=== PATIENT | female | born 1960 | race Caucasian/White ===

== ENCOUNTER 2020-08-27 21:23 | Emergency (ER) | payer MEDICARE, OTHER ==
[~2020-08-27 21:23] MED LIST: ACYCLOVIR400 MG PO; AMBIEN10 MG PO; ANTIVERT25 MG PO; ASPIRIN325 MG PO; BACTRIM DS TAB1 EACH PO; CIPRO500 MG PO; CYCLOBENZAPRINE10 MG PO; DICLOFENAC SODI75 MG PO; DIFLUCAN150 MG PO; DILANTIN100 MG PO; IBUPROFEN800 MG PO; KLONOPIN0.5 MG PO; LODINE400 MG PO; MACROBID100 MG PO; NORCO 5-325 TA1 EACH PO; PHENOBARBITAL100 MG PO; PREDNISONE 20MG20 MG PO; PROZAC20 MG PO; TRAZODONE 150M150 MG PO; VENTOLIN HFA IN18 GM INH; VIBRAMYCIN100 MG PO
[2020-08-27] MEDS ORDERED: NAPROXEN500 MG PO (22:28)
== END 2020-08-27 22:37 | disposition home or self-care (01) ==
LOC: FER 21:23
DX: S40.012A Contusion of left shoulder, initial encounter (principal); S40.022A Contusion of left upper arm, initial encounter; S40.021A Contusion of right upper arm, initial encounter; R51.9 Headache, unspecified; R07.9 Chest pain, unspecified; Y04.2XXA Assault by strike against or bumped into by another person, initial encounter; Y92.830 Public park as the place of occurrence of the external cause
CPT/HCPCS: 71046; 73030

== ENCOUNTER 2020-09-06 16:08 | Emergency (ER) | payer MEDICARE, OTHER ==
[~2020-09-06 16:08] MED LIST changes: +NAPROXEN500 MG PO
[2020-09-06] MEDS ORDERED: RELAFEN750 MG PO (17:57)
== END 2020-09-06 18:13 | disposition home or self-care (01) ==
LOC: FER 16:08
DX: S20.212A Contusion of left front wall of thorax, initial encounter (principal); S40.021A Contusion of right upper arm, initial encounter; Z91.040 Latex allergy status; Y04.2XXA Assault by strike against or bumped into by another person, initial encounter; Y92.009 Unspecified place in unspecified non-institutional (private) residence as the place of occurrence of the external cause
CPT/HCPCS: 71101

== ENCOUNTER 2020-09-23 12:16 | Emergency (ER) | payer MEDICARE, OTHER ==
[~2020-09-23 12:16] MED LIST changes: +RELAFEN750 MG PO
[2020-09-23 15:33] LABS: BILIRUBIN NEGATIVE (NEGATIVE); BLOOD TRACE-INTACT Ery/uL (NEGATIVE); CLARITY CLEAR (CLEAR); COLOR YELLOW (YELLOW); GLUCOSE (U) NORMAL (NORMAL); LEUKOCYTES NEGATIVE Leu/uL (NEGATIVE); NITRITE NEGATIVE (NEGATIVE); PROTEIN NEGATIVE (NEGATIVE); SPECIFIC GRAVITY 1.015 (1.001-1.030); UROBILINOGEN 0.2 mg/dL (0.2-1.0); pH 7.5 (5.0-9.0)
[2020-09-23 15:38] LABS: URINARY RBC RARE
[2020-09-23 17:13] LABS: ALBUMIN 3.5 g/dL (3.4-5.0); BILIRUBIN - TOTAL 0.3 mg/dL (0.2-1.0); BUN/CREAT RATIO (CALC) 5.7 RATIO; CREATININE 0.7 mg/dL (0.51-0.95); GLOBULIN (CALCULATION) 3.5 g/dL; POTASSIUM 3.8 mmol/L (3.5-5.1)
[2020-09-23 17:26] LABS: LACTIC ACID 1.7 mmol/L (0.4-1.9)
[2020-09-23 17:36] LABS: BASOPHIL 0.2 % (0-2); EOSINOPHIL 0 % (0-5); HCT 34.3 % (37.0-47.0); HGB 11.8 g/dl (12.5-16.0); MCH 31.1 pg (25.0-31.0); MCHC 34.4 g/dL (32.0-36.0); MCV 90.3 fL (78.0-100.0); MONOCYTE 6.5 % (0-12); MPV 8.8 fL (6.0-9.5); NRBC 0; PLT 168 K/uL (150-400); RDW 12.6 % (11.5-14.0); WBC 9.1 K/uL (4.0-10.5)
[2020-09-23] MEDS ORDERED: VOLTAREN **OUT50 MG PO ×2 (18:14→19:23)
[2020-09-23] MEDS ORDERED: VIBRAMYCIN100 MG PO ×2 (18:14→19:23)
== END 2020-09-23 19:21 | disposition home or self-care (01) ==
LOC: FER 12:16
PROVIDERS: Emergency Medicine
DX: M54.5 Low back pain (principal); M54.2 Cervicalgia; M53.3 Sacrococcygeal disorders, not elsewhere classified; G89.29 Other chronic pain; J18.0 Bronchopneumonia, unspecified organism; R91.8 Other nonspecific abnormal finding of lung field; R20.0 Anesthesia of skin; J45.909 Unspecified asthma, uncomplicated; Z87.39 Personal history of other diseases of the musculoskeletal system and connective tissue; W19.XXXA Unspecified fall, initial encounter; Z20.822 Contact with and (suspected) exposure to COVID-19
CPT/HCPCS: 36415; 71045; 72128; 72131; 80053; 81001; 83605; 85025; 87040; 87076; 87088; 87186; J1885; U0002

== ENCOUNTER 2020-11-06 16:09 | Emergency (ER) | payer MEDICARE, OTHER ==
[~2020-11-06 16:09] MED LIST changes: +VOLTAREN **OUT50 MG PO
[2020-11-06] MEDS ORDERED: DICLOFENAC SODI75 MG PO (17:53)
== END 2020-11-06 18:10 | disposition home or self-care (01) ==
LOC: FER 16:09
DX: M48.02 Spinal stenosis, cervical region (principal); R51.9 Headache, unspecified; J44.9 Chronic obstructive pulmonary disease, unspecified
CPT/HCPCS: 96372; 99283; J1040; J1885; J3360

== ENCOUNTER 2020-12-16 17:08 | Emergency (ER) | payer MEDICARE, OTHER ==
[2020-12-16] MEDS ORDERED: NAPROXEN500 MG PO (19:31)
== END 2020-12-16 20:12 | disposition home or self-care (01) ==
LOC: FER 17:08
DX: S02.2XXA Fracture of nasal bones, initial encounter for closed fracture (principal); S16.1XXA Strain of muscle, fascia and tendon at neck level, initial encounter; M25.531 Pain in right wrist; M25.532 Pain in left wrist; I10 Essential (primary) hypertension; Z79.899 Other long term (current) drug therapy; Z86.69 Personal history of other diseases of the nervous system and sense organs; Z91.040 Latex allergy status; Z98.890 Other specified postprocedural states; W19.XXXA Unspecified fall, initial encounter; W22.8XXA Striking against or struck by other objects, initial encounter
CPT/HCPCS: 70450; 72125; 73100; 96372; J1170; J1885

== ENCOUNTER 2021-01-21 23:04 | Emergency (ER) | payer MEDICARE, OTHER ==
[2021-01-21 23:59] LABS: BILIRUBIN 2+ mg/dL (NEGATIVE); BLOOD TRACE-INTACT Ery/uL (NEGATIVE); CLARITY HAZY (CLEAR); COLOR ORANGE (YELLOW); GLUCOSE (U) 1+ mg/dL (NORMAL); LEUKOCYTES 2+ Leu/uL (NEGATIVE); NITRITE POSITIVE (NEGATIVE); PROTEIN 2+ mg/dL (NEGATIVE); UROBILINOGEN >=8.0 mg/dL (0.2-1.0); pH 5.5 (5.0-9.0)
[2021-01-22 00:07] LABS: URINARY RBC RARE; URINARY WBC 20-50
[2021-01-22 00:08] LABS: BACTERIA TRACE; SQUAMOUS EPITHELIAL CELLS RARE
[2021-01-22 00:09] LABS: BASOPHIL 0.5 % (0-2); EOSINOPHIL 0.5 % (0-5); HCT 38.2 % (37.0-47.0); HGB 13.1 g/dl (12.5-16.0); LYMPHOCYTE 26.6 % (15-48); MCHC 34.3 g/dL (32.0-36.0); MCV 93.4 fL (78.0-100.0); MONOCYTE 9.5 % (0-12); MPV 8.8 fL (6.0-9.5); NEUTROPHIL 62.7 % (41-80); NRBC 0; PLT 174 K/uL (150-400); RBC 4.09 M/uL (4.20-5.40); RDW 13.3 % (11.5-14.0); WBC 4.4 K/uL (4.0-10.5)
[2021-01-22 00:28] LABS: ALBUMIN 3.8 g/dL (3.4-5.0); BILIRUBIN - TOTAL 0.2 mg/dL (0.2-1.0); CREATININE 0.92 mg/dL (0.51-0.95); GLOBULIN (CALCULATION) 3.6 g/dL; POTASSIUM 3.6 mmol/L (3.5-5.1); TOTAL PROTEIN 7.4 g/dL (6.4-8.2)
[2021-01-22] MEDS ORDERED: CIPRO500 MG PO (03:14)
[2021-01-22] MEDS ORDERED: NORCO 5-325 TA1 EACH PO (03:14)
[2021-01-22] MEDS ORDERED: DIFLUCAN 100MG100 MG PO (03:31)
[2021-01-25 06:06] LABS: CHLAMYDIA TRACHOMATIS, NAA Negative (Negative); NEISSERIA GONORRHOEAE, NAA Negative (Negative)
== END 2021-01-22 03:30 | disposition home or self-care (01) ==
LOC: FER 23:04
PROVIDERS: Emergency Medicine Emergency Medical Services
DX: N30.00 Acute cystitis without hematuria (principal); N93.9 Abnormal uterine and vaginal bleeding, unspecified; Z91.040 Latex allergy status; Z90.711 Acquired absence of uterus with remaining cervical stump
CPT/HCPCS: 36415; 80053; 81001; 85025; 87210; 87491; 87591; J1885; J2270; J2405

== ENCOUNTER 2021-02-23 18:08 | Emergency (ER) | payer MEDICARE, OTHER ==
[~2021-02-23 18:08] MED LIST changes: +DIFLUCAN 100MG100 MG PO
[2021-02-23 19:36] LABS: BASOPHIL 0.5 % (0-2); EOSINOPHIL 0.3 % (0-5); HCT 35.1 % (37.0-47.0); HGB 11.9 g/dl (12.5-16.0); LYMPHOCYTE 26.3 % (15-48); MCH 32.3 pg (25.0-31.0); MCHC 33.9 g/dL (32.0-36.0); MCV 95.4 fL (78.0-100.0); MONOCYTE 8.5 % (0-12); NEUTROPHIL 64.1 % (41-80); NRBC 0; PLT 164 K/uL (150-400); RBC 3.68 M/uL (4.20-5.40); RDW 12.8 % (11.5-14.0); WBC 3.9 K/uL (4.0-10.5)
[2021-02-23 19:49] LABS: ALBUMIN 3.8 g/dL (3.4-5.0); BILIRUBIN - TOTAL 0.4 mg/dL (0.2-1.0); BUN/CREAT RATIO (CALC) 23.5 RATIO; CREATININE 0.68 mg/dL (0.51-0.95); GLOBULIN (CALCULATION) 3.6 g/dL; POTASSIUM 3.6 mmol/L (3.5-5.1); TOTAL PROTEIN 7.4 g/dL (6.4-8.2)
[2021-02-23] MEDS ORDERED: ONDANSETRON ODT4 MG PO (20:42)
== END 2021-02-23 20:50 | disposition home or self-care (01) ==
LOC: FER 18:08
PROVIDERS: Emergency Medicine
DX: B34.9 Viral infection, unspecified (principal); R11.2 Nausea with vomiting, unspecified; R19.7 Diarrhea, unspecified; G40.909 Epilepsy, unspecified, not intractable, without status epilepticus; Z91.040 Latex allergy status; Z79.899 Other long term (current) drug therapy
CPT/HCPCS: 36415; 80053; 83690; 84484; 85025; 93005; J0780; J1885; J2270; J2405; J7030

== ENCOUNTER 2021-03-01 23:51 | Emergency (ER) | payer MEDICARE, OTHER ==
[~2021-03-01 23:51] MED LIST changes: +ONDANSETRON ODT4 MG PO
[2021-03-02 01:04] LABS: BASOPHIL 0.2 % (0-2); EOSINOPHIL 0.5 % (0-5); HCT 33.7 % (37.0-47.0); HGB 11.9 g/dl (12.5-16.0); LYMPHOCYTE 37.6 % (15-48); MCH 32.9 pg (25.0-31.0); MCHC 35.3 g/dL (32.0-36.0); MCV 93.1 fL (78.0-100.0); MONOCYTE 9.3 % (0-12); MPV 9.2 fL (6.0-9.5); NEUTROPHIL 52.4 % (41-80); NRBC 0; PLT 186 K/uL (150-400); RBC 3.62 M/uL (4.20-5.40); RDW 12.9 % (11.5-14.0); WBC 4.1 K/uL (4.0-10.5)
[2021-03-02 01:24] LABS: ALBUMIN 3.8 g/dL (3.4-5.0); BILIRUBIN - TOTAL 0.3 mg/dL (0.2-1.0); BUN/CREAT RATIO (CALC) 12.5 RATIO; CREATININE 0.8 mg/dL (0.51-0.95); GLOBULIN (CALCULATION) 3.3 g/dL; TOTAL PROTEIN 7.1 g/dL (6.4-8.2)
[2021-03-02 01:29] LABS: LACTIC ACID 0.4 mmol/L (0.4-1.9)
[2021-03-02 02:38] LABS: BILIRUBIN NEGATIVE (NEGATIVE); BLOOD NEGATIVE Ery/uL (NEGATIVE); CLARITY CLEAR (CLEAR); COLOR YELLOW (YELLOW); GLUCOSE (U) NORMAL (NORMAL); LEUKOCYTES TRACE Leu/uL (NEGATIVE); NITRITE NEGATIVE (NEGATIVE); PROTEIN NEGATIVE (NEGATIVE); SPECIFIC GRAVITY <=1.005 (1.001-1.030); UROBILINOGEN 0.2 mg/dL (0.2-1.0)
[2021-03-02 02:45] LABS: SQUAMOUS EPITHELIAL CELLS RARE; URINARY WBC RARE
[2021-03-02 04:19] LABS: INR 1.11 (0.9-1.2); PROTHROMBIN TIME 13.6 SECONDS (11.4-13.6); PTT 30.9 SECONDS (22.2-34.7)
[2021-03-02 06:16] LABS: CORONAVIRUS 2019 SARS-COV-2 NEGATIVE (NEGATIVE); INFLUENZA A NAA NEGATIVE (NEGATIVE)
[2021-03-02 07:34] LABS: ECSTASY (MDMA) NEGATIVE (NEGATIVE); MARIJUANA (THC) NEGATIVE (NEGATIVE); METHADONE NEGATIVE (NEGATIVE); OPIATES NEGATIVE (NEGATIVE)
[2021-03-02 07:35] LABS: AMPHETAMINES NEGATIVE (NEGATIVE); BARBITURATES POSITIVE (NEGATIVE); OXYCODONE NEGATIVE (NEGATIVE)
[2021-03-03 16:09] LABS: LYME IGG/IGM AB <0.91 ISR (0.00-0.90)
[2021-03-04 22:10] LABS: HSV-1 DNA Negative (Negative); HSV-2 DNA Negative (Negative)
== END 2021-03-02 14:20 | disposition other institution (70) ==
LOC: FER 23:51
PROVIDERS: Emergency Medicine Emergency Medical Services
DX: R10.31 Right lower quadrant pain (principal); R10.32 Left lower quadrant pain; R19.7 Diarrhea, unspecified; R11.2 Nausea with vomiting, unspecified; R53.1 Weakness; R07.9 Chest pain, unspecified; M54.9 Dorsalgia, unspecified; G43.901 Migraine, unspecified, not intractable, with status migrainosus; I48.91 Unspecified atrial fibrillation; G40.909 Epilepsy, unspecified, not intractable, without status epilepticus; F41.9 Anxiety disorder, unspecified; F31.9 Bipolar disorder, unspecified; Z20.822 Contact with and (suspected) exposure to COVID-19; Z91.040 Latex allergy status; Z90.49 Acquired absence of other specified parts of digestive tract; Z90.710 Acquired absence of both cervix and uterus; Z79.899 Other long term (current) drug therapy
CPT/HCPCS: 36415; 70450; 70551; 71045; 80053; 80305; 81001; 83605; 83690; 84145; 84484; 85025; 85610; 85730; 86618; 86757; 87040; 87088; 87529; 93005; 96365; 96372; 96375; 96376; G0480; J0500; J0696; J1100; J1170; J1885; J2175; J2270; J2405; J3030; J3480; J7030; Q9967; U0002

== ENCOUNTER 2021-03-12 21:19 | Emergency (ER) | payer MEDICARE, OTHER ==
[2021-03-12 22:46] LABS: BASOPHIL 0.5 % (0-2); EOSINOPHIL 0.8 % (0-5); HGB 11.9 g/dl (12.5-16.0); LYMPHOCYTE 31.1 % (15-48); MCH 32.7 pg (25.0-31.0); MCV 96.2 fL (78.0-100.0); MONOCYTE 9.2 % (0-12); MPV 8.8 fL (6.0-9.5); NEUTROPHIL 58.1 % (41-80); NRBC 0; PLT 212 K/uL (150-400); RBC 3.64 M/uL (4.20-5.40); RDW 12.5 % (11.5-14.0); WBC 3.9 K/uL (4.0-10.5)
[2021-03-12 23:03] LABS: BILIRUBIN NEGATIVE (NEGATIVE); BLOOD NEGATIVE Ery/uL (NEGATIVE); CLARITY CLEAR (CLEAR); COLOR YELLOW (YELLOW); GLUCOSE (U) NORMAL (NORMAL); LEUKOCYTES NEGATIVE Leu/uL (NEGATIVE); NITRITE NEGATIVE (NEGATIVE); PROTEIN NEGATIVE (NEGATIVE)
[2021-03-12 23:24] LABS: ALBUMIN 3.8 g/dL (3.4-5.0); BILIRUBIN - TOTAL 0.2 mg/dL (0.2-1.0); BUN/CREAT RATIO (CALC) 18.3 RATIO; CREATININE 1.04 mg/dL (0.51-0.95); GLOBULIN (CALCULATION) 3.6 g/dL; POTASSIUM 3.9 mmol/L (3.5-5.1); TOTAL PROTEIN 7.4 g/dL (6.4-8.2)
[2021-03-13 02:52] LABS: HCT 31.5 % (37.0-47.0); HGB 10.5 g/dL (12.5-16.0)
== END 2021-03-13 03:44 | disposition home or self-care (01) ==
LOC: FER 21:19
PROVIDERS: Emergency Medicine Emergency Medical Services; Nurse Practitioner Family
DX: R51.9 Headache, unspecified (principal); K62.5 Hemorrhage of anus and rectum; G40.909 Epilepsy, unspecified, not intractable, without status epilepticus; J44.9 Chronic obstructive pulmonary disease, unspecified; Z91.040 Latex allergy status; Z79.899 Other long term (current) drug therapy
CPT/HCPCS: 36415; 70450; 80053; 81003; 82270; 85014; 85018; 85025; J1170; J2270; J2405; J7030; Q9967

== ENCOUNTER 2021-04-08 19:48 | Emergency (ER) | payer MEDICARE, OTHER ==
[2021-04-08 21:12] LABS: BASOPHIL 0.3 % (0-2); HCT 34.2 % (37.0-47.0); HGB 11.2 g/dl (12.5-16.0); LYMPHOCYTE 29.9 % (15-48); MCH 30.8 pg (25.0-31.0); MCHC 32.7 g/dL (32.0-36.0); MPV 9.2 fL (6.0-9.5); NEUTROPHIL 56.5 % (41-80); NRBC 0; PLT 154 K/uL (150-400); RBC 3.64 M/uL (4.20-5.40); RDW 12.1 % (11.5-14.0); WBC 3.1 K/uL (4.0-10.5)
[2021-04-08 21:30] LABS: ALBUMIN 3.4 g/dL (3.4-5.0); BILIRUBIN - TOTAL 0.1 mg/dL (0.2-1.0); BUN/CREAT RATIO (CALC) 16.5 RATIO; CREATININE 0.79 mg/dL (0.51-0.95); GLOBULIN (CALCULATION) 3.3 g/dL; POTASSIUM 4.1 mmol/L (3.5-5.1); TOTAL PROTEIN 6.7 g/dL (6.4-8.2)
[2021-04-08 22:27] LABS: BILIRUBIN NEGATIVE (NEGATIVE); BLOOD TRACE-INTACT Ery/uL (NEGATIVE); CLARITY CLEAR (CLEAR); COLOR YELLOW (YELLOW); GLUCOSE (U) NORMAL (NORMAL); LEUKOCYTES NEGATIVE Leu/uL (NEGATIVE); NITRITE NEGATIVE (NEGATIVE); PROTEIN NEGATIVE (NEGATIVE); UROBILINOGEN 0.2 mg/dL (0.2-1.0); pH 6.5 (5.0-9.0)
[2021-04-08 22:36] LABS: BACTERIA 2+; URINARY RBC RARE; URINARY WBC RARE
[2021-04-08 22:37] LABS: MUCOUS TRACE
[2021-04-08] MEDS ORDERED: ONDANSETRON ODT4 MG PO (22:52)
== END 2021-04-08 23:05 | disposition home or self-care (01) ==
LOC: FER 19:48
PROVIDERS: Emergency Medicine
DX: B34.9 Viral infection, unspecified (principal); Z91.040 Latex allergy status; Z20.822 Contact with and (suspected) exposure to COVID-19
CPT/HCPCS: 36415; 71045; 80053; 81001; 84484; 85025; 93005; J0780; J1885; J2405; J7030; U0002

== ENCOUNTER 2021-10-29 21:52 | Emergency (ER) | payer MEDICARE, OTHER ==
[2021-10-30] MEDS ORDERED: ROBAXIN500 MG PO (00:26)
[2021-10-30] MEDS ORDERED: NORCO 5-325 TA1 EACH PO (00:26)
== END 2021-10-30 00:39 | disposition home or self-care (01) ==
LOC: FER 21:52
DX: S16.1XXA Strain of muscle, fascia and tendon at neck level, initial encounter (principal); S39.012A Strain of muscle, fascia and tendon of lower back, initial encounter; S09.90XA Unspecified injury of head, initial encounter; Z91.040 Latex allergy status; W18.09XA Striking against other object with subsequent fall, initial encounter; Y92.240 Courthouse as the place of occurrence of the external cause
CPT/HCPCS: 70450; 71045; 72125; 72128; 72131; 96372; J1170; J1885

== ENCOUNTER 2021-11-01 18:26 | Emergency (ER) | payer MEDICARE, OTHER ==
[~2021-11-01 18:26] MED LIST changes: +ROBAXIN500 MG PO
[2021-11-01 20:00] LABS: BASOPHIL 0.2 % (0-2); EOSINOPHIL 1.4 % (0-5); HCT 33.2 % (37.0-47.0); HGB 11.1 g/dl (12.5-16.0); LYMPHOCYTE 20.4 % (15-48); MCH 30.2 pg (25.0-31.0); MCHC 33.4 g/dL (32.0-36.0); MCV 90.5 fL (78.0-100.0); MONOCYTE 8.2 % (0-12); MPV 9.1 fL (6.0-9.5); NEUTROPHIL 69.6 % (41-80); NRBC 0; PLT 185 K/uL (150-400); RBC 3.67 M/uL (4.20-5.40); RDW 13.4 % (11.5-14.0); WBC 4.3 K/uL (4.0-10.5)
[2021-11-01 20:25] LABS: ALBUMIN 3.6 g/dL (3.4-5.0); ALKALINE PHOSHATASE 114 U/L (46-116); ALT 17 U/L (14-59); AST 14 U/L (15-37); BILIRUBIN - TOTAL 0.2 mg/dL (0.2-1.0); BUN 9 mg/dL (7-18); BUN/CREAT RATIO (CALC) 13.4 RATIO; CHLORIDE 104 mmol/L (98-107); CO2 (BICARBONATE) 26 mmol/L (21-32); CREATININE 0.67 mg/dL (0.51-0.95); GLUCOSE 110 mg/dL (74-106); POTASSIUM 3.9 mmol/L (3.5-5.1); TOTAL PROTEIN 6.6 g/dL (6.4-8.2)
[2021-11-01 20:29] LABS: ACETAMINOPHEN (TYLENOL) <2.0 ug/mL (10.0-30.0)
[2021-11-01 21:15] LABS: BILIRUBIN NEGATIVE (NEGATIVE); BLOOD NEGATIVE Ery/uL (NEGATIVE); CLARITY CLEAR (CLEAR); COLOR YELLOW (YELLOW); GLUCOSE (U) NORMAL (NORMAL); LEUKOCYTES NEGATIVE Leu/uL (NEGATIVE); NITRITE NEGATIVE (NEGATIVE); PROTEIN NEGATIVE (NEGATIVE); UROBILINOGEN 0.2 mg/dL (0.2-1.0); pH 7.5 (5.0-9.0)
[2021-11-01 21:20] LABS: ECSTASY (MDMA) NEGATIVE (NEGATIVE); MARIJUANA (THC) NEGATIVE (NEGATIVE); METHADONE NEGATIVE (NEGATIVE); OPIATES NEGATIVE (NEGATIVE)
[2021-11-01 21:21] LABS: AMPHETAMINES NEGATIVE (NEGATIVE); BARBITURATES POSITIVE (NEGATIVE); OXYCODONE NEGATIVE (NEGATIVE)
== END 2021-11-01 22:23 | disposition home or self-care (01) ==
LOC: FER 18:26
PROVIDERS: Emergency Medicine
DX: R51.9 Headache, unspecified (principal); M54.2 Cervicalgia; M54.50 Low back pain, unspecified; G89.29 Other chronic pain
CPT/HCPCS: 36415; 70450; 71250; 80053; 80305; 81003; 82140; 84484; 85025; 93005; G0480; J1170; J2930